=== PATIENT | female | born 1945 | race Caucasian/White ===

== ENCOUNTER 2024-11-27 06:34 | Day surgery (SDC) | payer OTHER, BC ==
[2024-11-24 14:43] VITALS: BMI 21.4
[2024-11-27] MEDS ORDERED: LIDOCAINE HCL 1%, 10 MG/ML (20ML VIAL) ONE (09:37)
[2024-11-27] MEDS ORDERED: PROPOFOL 20 ML ONE (10:12)
[2024-11-27] MEDS: ceFAZolin SODIUM 1 GM VIAL IVPB ONE ×2 (10:15)
[2024-11-27] MEDS: LIDOCAINE HCL 1%, 10 MG/ML (20ML VIAL) INF ONE ×2 (10:23)
[2024-11-27] MEDS ORDERED: oxyCODONE HCL 5 MG TABLET PO PRN (11:02)
[2024-11-27] MEDS ORDERED: ACETAMINOPHEN 325 MG TABLET (FP) PO PRN (11:02)
[2024-11-27] MEDS ORDERED: ONDANSETRON 4 MG/2 ML VIAL IVPUSH PRN (11:07)
[2024-11-27] MEDS: LACTATED RINGERS SOLUTION 1,000 ML IV SCH (11:10)
[2024-11-27 13:10] VITALS: BP 147/68; PULSE 60; RESP 18; TEMP 97
== END 2024-11-27 13:00 | disposition home or self-care (01) ==
LOC: JASU-SURG 06:34
PROVIDERS: ATTEND Surgery
PROC: B543ZZA Ultrasonography of Right Jugular Veins, Guidance (ICD-10-PCS; 2024-11-27)
PROC: 05HM33Z Insertion of Infusion Device into Right Internal Jugular Vein, Percutaneous Approach (ICD-10-PCS; principal; 2024-11-27 10:00)
DX: C18.9 Malignant neoplasm of colon, unspecified (principal)
CPT/HCPCS: 71045-TC-FY; 76000-TC-FY; 94760; C1788; J1644

== ENCOUNTER 2024-12-08 09:19 | Day surgery (SDC) | payer OTHER, BC ==
[2024-12-08 09:49] LABS: ABSOLUTE IMMATURE GRANULOCYTES 0.02 x10^3/uL (0.0-0.031); BASOPHILS # 0.03 x10^3/uL (0.01-0.08); EOSINOPHIL % 0.9 % (0.7-5.8); EOSINOPHILS # 0.06 x10^3/uL (0.04-0.36); HEMATOCRIT 41.2 % (34.1-44.9); HEMOGLOBIN 12.7 g/dL (11.2-15.7); MCHC 30.8 g/dl (32.2-35.5); MEAN CELL VOLUME 97.6 fl (79.4-94.8); MEAN PLT VOLUME 10.4 fl (9.4-12.3); MONOCYTE # 0.56 x10^3/uL (0.24-0.86); MONOCYTE % 8.6 % (4.7-12.5); PLATELET COUNT 233 x10^3/uL (182-369); RDW 13.6 % (12.4-16.6)
[2024-12-08] MEDS: SODIUM CHLORIDE 250 ML IV ONE (10:18)
[2024-12-08 10:25] LABS: CHLORIDE 112 mmol/L (98-107); POTASSIUM 4.5 mmol/L (3.5-5.1); SODIUM 144 mmol/L (136-145)
[2024-12-08 10:26] LABS: CALCIUM 9.4 mg/dL (8.5-10.1)
[2024-12-08 10:27] LABS: ALBUMIN 3.2 g/dl (3.4-5.0); ANION GAP 3 mmol/L (4-13); BLOOD UREA NITROGEN 16.4 mg/dL (7-18); CO2 29 mmol/L (21-32); GLUCOSE,RANDOM 103 mg/dL (74-106); MAGNESIUM 2.2 mg/dL (1.8-2.4)
[2024-12-08 10:30] LABS: CREATININE 0.8 mg/dL (0.55-1.3); SGOT/AST 26 U/L (15-37); SGPT/ALT 33 U/L (13-61)
[2024-12-08 10:32] LABS: BILIRUBIN,TOTAL 0.3 mg/dL (0.2-1)
[2024-12-08 10:33] LABS: ALK PHOS 92 U/L (45-117)
[2024-12-08] MEDS: FAMOTIDINE 20 MG/50 ML IVPB 20 MG/50 ML MG IVPB ONE (11:13)
[2024-12-08] MEDS: PALONOSETRON HCL 0.25 MG/5 ML VIAL IVPUSH ONE (11:13)
[2024-12-08] MEDS: DEXAMETHASONE SODIUM PHOSPHATE 12 MG, DIPHENHYDRAMINE 25 MG in SODIUM CHLORIDE 100 ML IVPB ONE (11:48)
[2024-12-08] MEDS: LEUCOVORIN INJECTION - 600 MG in DEXTROSE 5%-WATER - 250 ML IVPB ONE (12:35)
[2024-12-08 12:46] VITALS: RESP 20; TEMP 98.7
[2024-12-08] MEDS: FLUOROURACIL 1,000 MG/20 ML VIAL IVPUSH ONE (14:54)
[2024-12-08] MEDS: FLUOROURACIL CP ONE (15:08)
[2024-12-08] MEDS: SODIUM CHLORIDE CP ONE (15:08)
[2024-12-08 15:27] VITALS: BP 148/84; PULSE 58
== END 2024-12-08 15:30 | disposition home or self-care (01) ==
LOC: JONCCHEMO 09:19 → J7W 09:25 → JONCCHEMO 15:30
PROVIDERS: ATTEND Internal Medicine Hematology & Oncology
DX: Z51.11 Encounter for antineoplastic chemotherapy (principal); C20 Malignant neoplasm of rectum
CPT/HCPCS: 36415; 80053; 83735; 85025; G0498; J9263

== ENCOUNTER 2024-12-10 13:01 | Day surgery (SDC) | payer OTHER, BC ==
[2024-12-10] MEDS: SODIUM CHLORIDE 500 ML IV ONE (13:04)
[2024-12-10] MEDS: PORTA CATH FLUSH 10 ML IVPUSH PRN (15:05)
[2024-12-10 16:41] VITALS: RESP 20; TEMP 98.5
[2024-12-10 18:02] VITALS: BP 157/72; PULSE 50
== END 2024-12-10 15:15 | disposition home or self-care (01) ==
LOC: JONCCHEMO 13:01 → J7W 13:03 → JONCCHEMO 15:15
PROVIDERS: ATTEND Internal Medicine Hematology & Oncology
PROC: 3E0437Z Introduction of Electrolytic and Water Balance Substance into Central Vein, Percutaneous Approach (ICD-10-PCS; principal; 2024-12-10)
DX: C20 Malignant neoplasm of rectum (principal); Z76.89 Persons encountering health services in other specified circumstances

== ENCOUNTER 2024-12-24 12:45 | Day surgery (SDC) | payer OTHER, BC ==
[2024-12-24] MEDS: SODIUM CHLORIDE 500 ML IV ONE (13:00)
[2024-12-24] MEDS: PORTA CATH FLUSH 10 ML IVPUSH PRN (15:05)
[2024-12-24 17:09] VITALS: TEMP 98.2
[2024-12-24 17:10] VITALS: BP 142/77; PULSE 50; RESP 20
== END 2024-12-24 15:10 | disposition home or self-care (01) ==
LOC: J7W 12:45 → JONCCHEMO 12:45
PROVIDERS: ATTEND Internal Medicine Hematology & Oncology
PROC: 3E0437Z Introduction of Electrolytic and Water Balance Substance into Central Vein, Percutaneous Approach (ICD-10-PCS; principal; 2024-12-24)
DX: C20 Malignant neoplasm of rectum (principal); Z76.89 Persons encountering health services in other specified circumstances
CPT/HCPCS: 96360; 96361

== ENCOUNTER 2025-01-27 10:35 | Day surgery (SDC) | payer OTHER, BC ==
[~2025-01-27 10:35] MED LIST: FLUOROURACIL 1,000 MG/20 ML VIAL IVPUSH ONE
[2025-01-27 11:46] LABS: MCHC 31.9 g/dl (32.2-35.5); MEAN CELL VOLUME 93.9 fl (79.4-94.8); MEAN PLT VOLUME 11.2 fl (9.4-12.3); RDW 15.2 % (12.4-16.6)
[2025-01-27] MEDS: SODIUM CHLORIDE 250 ML IV ONE (12:15)
[2025-01-27 12:17] LABS: CO2 28.0 mmol/L (21-32); GLUCOSE,RANDOM 99.0 mg/dL (74-106)
[2025-01-27 12:20] LABS: CREATININE 0.8 mg/dL (0.55-1.3); SGOT/AST 20.0 U/L (15-37); SGPT/ALT 23.0 U/L (13-61)
[2025-01-27] MEDS: PALONOSETRON HCL 0.25 MG/5 ML VIAL IVPUSH ONE (12:20)
[2025-01-27 12:22] LABS: TOT PROT 7.0 g/dl (6.4-8.2)
[2025-01-27 12:23] LABS: ALK PHOS 94.0 U/L (45-117)
[2025-01-27] MEDS: DEXAMETHASONE SODIUM PHOSPHATE 12 MG, DIPHENHYDRAMINE 25 MG in SODIUM CHLORIDE 100 ML IVPB ONE (12:25)
[2025-01-27] MEDS: FAMOTIDINE 20 MG/50 ML IVPB 20 MG/50 ML MG IVPB ONE (13:03)
[2025-01-27] MEDS: DEXTROSE 5% IVPB ONE (13:30)
[2025-01-27] MEDS: WATER IVPB ONE (13:30)
[2025-01-27] MEDS: LEUCOVORIN IVPB ONE (13:30)
[2025-01-27 15:23] VITALS: TEMP 98.9
[2025-01-27] MEDS ORDERED: PORTA CATH FLUSH 10 ML IVPUSH PRN (15:23)
[2025-01-27] MEDS: CYANOCOBALAMIN (VITAMIN B-12) 1000 MCG/1 ML VIAL IM ONE (15:51)
[2025-01-27] MEDS: SODIUM CHLORIDE CP ONE (15:54)
[2025-01-27] MEDS: FLUOROURACIL CP ONE (15:54)
[2025-01-27 16:26] VITALS: BP 154/80; PULSE 54; RESP 16
== END 2025-01-27 16:00 | disposition home or self-care (01) ==
LOC: JONCCHEMO 10:35 → J7W 10:40 → JONCCHEMO 16:00
PROVIDERS: ATTEND Internal Medicine Hematology & Oncology
DX: Z51.11 Encounter for antineoplastic chemotherapy (principal); C20 Malignant neoplasm of rectum
CPT/HCPCS: 36415; 80053; 83735; 85025; 96367; 96368; 96372; 96375; 96413; 96415; G0498; J9263

== ENCOUNTER 2025-02-18 12:48 | Day surgery (SDC) | payer OTHER, BC ==
[2025-02-18] MEDS: TBO-FILGRASTIM 300 MCG/0.5 ML DISP.SYRINGE SQ ONE (13:33)
[2025-02-18 16:04] VITALS: BP 114/57; PULSE 58; RESP 20; TEMP 97.7
== END 2025-02-18 14:00 | disposition home or self-care (01) ==
LOC: JONCNONCHE 12:48
PROVIDERS: ATTEND Internal Medicine Hematology & Oncology
PROC: 3E013GC Introduction of Other Therapeutic Substance into Subcutaneous Tissue, Percutaneous Approach (ICD-10-PCS; principal; 2025-02-18)
DX: C20 Malignant neoplasm of rectum (principal); Z76.89 Persons encountering health services in other specified circumstances
CPT/HCPCS: 96372; J1447

== ENCOUNTER 2025-03-09 09:59 | Day surgery (SDC) | payer OTHER, BC ==
[2025-03-09 10:35] LABS: ABSOLUTE IMMATURE GRANULOCYTES 0.01 x10^3/uL (0.0-0.031); BASOPHILS # 0.02 x10^3/uL (0.01-0.08); EOSINOPHIL % 1.0 % (0.7-5.8); EOSINOPHILS # 0.03 x10^3/uL (0.04-0.36); MCHC 31.6 g/dl (32.2-35.5); MEAN CELL VOLUME 99.3 fl (79.4-94.8); MEAN PLT VOLUME 10.1 fl (9.4-12.3); MONOCYTE # 0.43 x10^3/uL (0.24-0.86); MONOCYTE % 15.0 % (4.7-12.5); RDW 17.3 % (12.4-16.6)
[2025-03-09] MEDS: SODIUM CHLORIDE 250 ML IV ONE (11:00)
[2025-03-09 11:05] LABS: GLUCOSE,RANDOM 95 mg/dL (74-106); TOT PROT 6.8 g/dl (6.4-8.2)
[2025-03-09 11:06] LABS: CO2 22 mmol/L (21-32)
[2025-03-09 11:08] LABS: ALK PHOS 77 U/L (40-150)
[2025-03-09 11:11] LABS: CREATININE 0.88 mg/dL (0.55-1.3); SGOT/AST 19 U/L (5-34); SGPT/ALT 9 U/L (0-55)
[2025-03-09] MEDS: DEXAMETHASONE SODIUM PHOSPHATE 12 MG, DIPHENHYDRAMINE 25 MG in SODIUM CHLORIDE 100 ML IVPB ONE (11:32)
[2025-03-09] MEDS: PALONOSETRON HCL 0.25 MG/5 ML VIAL IVPUSH ONE (11:32)
[2025-03-09] MEDS: FAMOTIDINE 20 MG/50 ML IVPB 20 MG/50 ML MG IVPB ONE (12:02)
[2025-03-09] MEDS: LEUCOVORIN IVPB ONE (12:40)
[2025-03-09] MEDS: WATER IVPB ONE (12:40)
[2025-03-09] MEDS: DEXTROSE 5% IVPB ONE (12:40)
[2025-03-09] MEDS: FLUOROURACIL 1,000 MG/20 ML VIAL IVPUSH ONE (14:54)
[2025-03-09] MEDS: SODIUM CHLORIDE CP ONE (15:04)
[2025-03-09] MEDS: FLUOROURACIL CP ONE (15:04)
[2025-03-09 16:26] VITALS: RESP 20; TEMP 97.9
[2025-03-09 16:59] VITALS: BP 139/81; PULSE 58
== END 2025-03-09 15:30 | disposition home or self-care (01) ==
LOC: JONCCHEMO 09:59
PROVIDERS: ATTEND Internal Medicine Hematology & Oncology
DX: Z51.11 Encounter for antineoplastic chemotherapy (principal); C20 Malignant neoplasm of rectum
CPT/HCPCS: 36415; 80053; 82607; 83735; 85025; 96367; 96368; 96375; 96411; 96413; 96415; G0498; J9263

== ENCOUNTER 2025-03-11 12:37 | Day surgery (SDC) | payer OTHER, BC ==
[2025-03-11] MEDS: SODIUM CHLORIDE 500 ML IV ONE (12:38)
[2025-03-11 14:42] VITALS: RESP 20; TEMP 98
[2025-03-11] MEDS ORDERED: PORTA CATH FLUSH 10 ML IVPUSH PRN (14:43)
[2025-03-11 14:44] VITALS: BP 103/52; PULSE 57
== END 2025-03-11 14:45 | disposition home or self-care (01) ==
LOC: JONCCHEMO 12:37
PROVIDERS: ATTEND Internal Medicine Hematology & Oncology
PROC: 3E0437Z Introduction of Electrolytic and Water Balance Substance into Central Vein, Percutaneous Approach (ICD-10-PCS; principal; 2025-03-11)
DX: C20 Malignant neoplasm of rectum (principal)
CPT/HCPCS: 96360

== ENCOUNTER 2025-03-23 09:03 | Day surgery (SDC) | payer OTHER, BC ==
[2025-03-23 09:32] LABS: MCHC 32.0 g/dl (32.2-35.5); MEAN CELL VOLUME 103.2 fl (79.4-94.8); MEAN PLT VOLUME 9.7 fl (9.4-12.3); RDW 18.4 % (12.4-16.6)
[2025-03-23 09:50] LABS: GLUCOSE,RANDOM 91.0 mg/dL (74-106); TOT PROT 6.7 g/dl (6.4-8.2)
[2025-03-23 09:52] LABS: CO2 24.0 mmol/L (21-32)
[2025-03-23 09:53] LABS: ALK PHOS 82.0 U/L (40-150)
[2025-03-23 09:56] LABS: CREATININE 1.1 mg/dL (0.55-1.3); SGOT/AST 18.0 U/L (5-34); SGPT/ALT 8.0 U/L (0-55)
[2025-03-23] MEDS: SODIUM CHLORIDE 250 ML IV ONE (10:47)
[2025-03-23] MEDS: FAMOTIDINE 20 MG/50 ML IVPB 20 MG/50 ML MG IVPB ONE (11:09)
[2025-03-23] MEDS: DEXAMETHASONE SODIUM PHOSPHATE 12 MG, DIPHENHYDRAMINE 25 MG in SODIUM CHLORIDE 100 ML IVPB ONE (11:46)
[2025-03-23] MEDS: PALONOSETRON HCL 0.25 MG/5 ML VIAL IVPUSH ONE (11:54)
[2025-03-23] MEDS: LEUCOVORIN INJECTION - 572 MG in DEXTROSE 5%-WATER - 250 ML IVPB ONE (12:32)
[2025-03-23 13:47] VITALS: RESP 20; TEMP 97.4
[2025-03-23] MEDS: FLUOROURACIL CP ONE (14:53)
[2025-03-23] MEDS: FLUOROURACIL 1,000 MG/20 ML VIAL IVPUSH ONE (14:53)
[2025-03-23] MEDS: SODIUM CHLORIDE CP ONE (14:53)
[2025-03-23 15:36] VITALS: BP 124/71; PULSE 58
== END 2025-03-23 15:45 | disposition home or self-care (01) ==
LOC: JONCCHEMO 09:03 → J7W 09:04 → JONCCHEMO 15:45
PROVIDERS: ATTEND Internal Medicine Hematology & Oncology
PROC: 3E04305 Introduction of Other Antineoplastic into Central Vein, Percutaneous Approach (ICD-10-PCS; principal; 2025-03-23)
PROC: 3E043GC Introduction of Other Therapeutic Substance into Central Vein, Percutaneous Approach (ICD-10-PCS; 2025-03-23)
PROC: 3E043GC Introduction of Other Therapeutic Substance into Central Vein, Percutaneous Approach (ICD-10-PCS; 2025-03-23)
DX: Z51.11 Encounter for antineoplastic chemotherapy (principal); C18.9 Malignant neoplasm of colon, unspecified
CPT/HCPCS: 36415; 80053; 83735; 85025; 96368; 96374; 96375; 96413; 96415; G0498; J9263

== ENCOUNTER 2025-04-08 10:39 | Day surgery (SDC) | payer OTHER, BC ==
[2025-04-08] MEDS: TBO-FILGRASTIM 300 MCG/0.5 ML DISP.SYRINGE SQ ONE (10:52)
[2025-04-08 16:38] VITALS: BP 111/85; PULSE 60; RESP 20; TEMP 97.8
== END 2025-04-08 11:00 | disposition home or self-care (01) ==
LOC: JONCNONCHE 10:39
PROVIDERS: ATTEND Internal Medicine Hematology & Oncology
PROC: 3E013GC Introduction of Other Therapeutic Substance into Subcutaneous Tissue, Percutaneous Approach (ICD-10-PCS; principal; 2025-04-08)
DX: C20 Malignant neoplasm of rectum (principal); Z76.89 Persons encountering health services in other specified circumstances
CPT/HCPCS: 96372; J1447

== ENCOUNTER 2025-04-14 10:19 | Day surgery (SDC) | payer OTHER, BC ==
[2025-04-14 10:47] LABS: MCHC 32.3 g/dl (32.2-35.5); MEAN CELL VOLUME 101.0 fl (79.4-94.8); MEAN PLT VOLUME 10.7 fl (9.4-12.3); RDW 17.2 % (12.4-16.6)
[2025-04-14 10:58] VITALS: TEMP 97.4
[2025-04-14 11:18] LABS: GLUCOSE,RANDOM 98 mg/dL (74-106)
[2025-04-14 11:19] LABS: TOT PROT 6.9 g/dl (6.4-8.2)
[2025-04-14 11:20] LABS: CO2 26 mmol/L (21-32)
[2025-04-14 11:24] LABS: SGOT/AST 19 U/L (5-34); SGPT/ALT 6 U/L (0-55)
[2025-04-14 11:25] LABS: CREATININE 0.72 mg/dL (0.55-1.3)
[2025-04-14 11:30] LABS: ALK PHOS 112 U/L (40-150)
[2025-04-14] MEDS: SODIUM CHLORIDE 250 ML IV ONE (12:02)
[2025-04-14] MEDS: FAMOTIDINE 20 MG/50 ML IVPB 20 MG/50 ML MG IVPB ONE (12:02)
[2025-04-14] MEDS: DEXAMETHASONE SODIUM PHOSPHATE 12 MG, DIPHENHYDRAMINE 25 MG in SODIUM CHLORIDE 100 ML IVPB ONE (12:37)
[2025-04-14] MEDS: PALONOSETRON HCL 0.25 MG/5 ML VIAL IVPUSH ONE (12:38)
[2025-04-14] MEDS: LEUCOVORIN INJECTION - 572 MG in DEXTROSE 5%-WATER - 250 ML IVPB ONE (13:23)
[2025-04-14] MEDS: SODIUM CHLORIDE CP ONE (15:44)
[2025-04-14] MEDS: FLUOROURACIL CP ONE (15:44)
[2025-04-14] MEDS: FLUOROURACIL 1,000 MG/20 ML VIAL IVPUSH ONE (15:44)
[2025-04-14 15:55] VITALS: BP 128/73; PULSE 61; RESP 20
== END 2025-04-14 16:00 | disposition home or self-care (01) ==
LOC: JONCCHEMO 10:19 → J7W 10:20 → JONCCHEMO 16:00
PROVIDERS: ATTEND Internal Medicine Hematology & Oncology
DX: Z51.11 Encounter for antineoplastic chemotherapy (principal); C20 Malignant neoplasm of rectum
CPT/HCPCS: 36415; 80053; 83735; 85025; 96367; 96413; 96417; G0498; J9263

== ENCOUNTER 2025-04-16 11:55 | Day surgery (SDC) | payer OTHER, BC ==
[~2025-04-16 11:55] MED LIST changes: -FLUOROURACIL 1,000 MG/20 ML VIAL IVPUSH ONE; +SODIUM CHLORIDE 500 ML IV ONE
[2025-04-16] MEDS: SODIUM CHLORIDE 500 ML IV ONE (12:15)
[2025-04-16 13:19] VITALS: RESP 18; TEMP 97.7
[2025-04-16 13:43] VITALS: BP 115/64; PULSE 55
[2025-04-16] MEDS: PORTA CATH FLUSH 10 ML IVPUSH PRN (13:51)
== END 2025-04-16 13:51 | disposition home or self-care (01) ==
LOC: JONCCHEMO 11:55
PROVIDERS: ATTEND Internal Medicine Hematology & Oncology
PROC: 3E0437Z Introduction of Electrolytic and Water Balance Substance into Central Vein, Percutaneous Approach (ICD-10-PCS; principal; 2025-04-16)
DX: C20 Malignant neoplasm of rectum (principal)